=== PATIENT | female | born 1985 | race Caucasian/White ===

== ENCOUNTER 2019-12-04 01:29 | Emergency (ER) | payer MEDICAID ==
[~2019-12-04] VITALS: Ht 149.9 cm; Wt 58.5 kg
[2019-12-04 04:44] VITALS: BP 129/88
== END 2019-12-04 05:45 | disposition home or self-care (01) ==
LOC: ER 01:33
DX: M26.623 Arthralgia of bilateral temporomandibular joint (principal); R51 Headache; F17.210 Nicotine dependence, cigarettes, uncomplicated; Z98.51 Tubal ligation status; Z88.0 Allergy status to penicillin
CPT/HCPCS: 70486